=== PATIENT | male | born 1995 | race Caucasian/White ===

== ENCOUNTER 2019-01-31 13:33 | Emergency (ER) | payer BC ==
--- NOTE | 2019-01-31 13:35 | ER Report ---
History and Physical Time Seen By MD: 13:34 HPI/ROS CHIEF COMPLAINT: Leg injury while skiing HISTORY OF PRESENT ILLNESS: Patient is a 23-year-old male with no contributory or past medical history who presents with complaint of right lower extremity pain after a skiing accident. Patient states he was skiing lost his balance and he ended up striking a tree in the middle part of his right lower extremity. No other injuries were identified there is no history of head injury. No chest pain no abdominal pain. Patient is able to feel his foot and move his toes without difficulty. He reports the most pain at the middle 3rd of his tibia. REVIEW OF SYSTEMS: Respiratory: No cough, no dyspnea. Cardiovascular: No chest pain, no palpitations. Gastrointestinal: No vomiting, no abdominal pain. Musculoskeletal: No back pain. Right lower extremity pain Allergies: Coded Allergies: No Known Allergies (Verified Allergy, Unknown, 01/31/19) Home Meds Active Scripts Oxycodone Hcl/Acetaminophen (PERCOCET 5-325 MG TABLET) 1 Each Tablet, 1 EACH PO Q4H for PAIN, #30 TAB 0 Refills Prov:TANNER KRAUS MD 01/31/19 Past Medical/Surgical History Noncontributory Constitutional Vital Sign - Last 24 Hours 01/31/19 01/31/19 01/31/19 01/31/19 13:33 13:36 13:46 13:53 Temp 97.6 Pulse 87 95 78 Resp 18 B/P (MAP) 132/98 (109) 132/98 129/71 (90) Pulse Ox 92 99 O2 Delivery Room Air 01/31/19 01/31/19 01/31/19 01/31/19 14:00 14:13 14:18 14:20 Pulse 79 83 B/P (MAP) 104/77 (86) 110/94 (99) Pulse Ox 98 100 01/31/19 01/31/19 01/31/19 14:40 14:45 15:00 Pulse 82 B/P (MAP) 121/75 (90) 119/83 (95) Pulse Ox 97 Physical Exam General appearance: Alert no distress. Respiratory: Chest is non tender, lungs are clear to auscultation. Cardiac: Regular rate and rhythm [ ] Right lower extremity: Patient with some bruising to the knee without obvious swelling. Patient is able to bend the knee without difficulty. Patient has abrasion to the anterior upper 3rd of the lower extremity. Pain is below the abrasion and is located in the middle 3rd of the anterior peterson. There is no obvious deformity. Patient has excellent capillary refill and has normal palpable dorsalis pedis and posterior tibialis pulses. Left Lower Extremity: No deformity patient is able to range the knee the ankle. Patient does have some bruising to the left knee with some swelling. Patient is able to raise the thigh and then extended the knee without pain. No pain to the proximal thigh no pain to the proximal tibia or fibula no pain distally to the ankle or foot. Medical Decision Making EKG/Imaging Imaging Patient has a closed, comminuted fracture to the middle 3rd of the right tibia that is completely nondisplaced. ED Course/Re-evaluation ED Course Plan at this time will be x-ray of the knee, tib-fib, ankle on the right lower extremity. 01/31/2019 2:32:05 pm Procedure: Short leg posterior splint and sugar tong splin placement. A short leg posterior splint was applied 1st and then wrapped in Ruben wrap. This was followed by the application of a sugar tong or U-splint splint was applied. After application of the splint I returned and re-examined the patient. The splint was adequately immobilizing the joint and distal to the splint the patient's circulation and sensation was intact. 01/31/2019 2:50:12 pm patient placed in splint without difficulty however upon standing he was complaining of left knee pain. He is able to range the knee there is some soft tissue swelling in the prepatellar area as well as ecchymosis however no pain to the proximal tibia or fibula no pain along the tibia ankle foot or upper thigh. Platelets time will be x-ray of the left knee Decision to Disposition Date: Jan 31, 2019 Decision to Disposition Time: 16:00 Depart Departure Latest Vital Signs Vital Signs Date Time Temp Pulse Resp B/P (MAP) Pulse Ox O2 Delivery O2 Flow Rate FiO2 01/31/19 15:00 119/83 (95) 01/31/19 14:45 82 97 01/31/19 13:46 97.6 18 Room Air Impression: Primary Impression: Tibial fracture Additional Impressions: Patellar fracture Contusion of left knee Condition: Improved Disposition: HOME OR SELF-CARE Referrals: [facility] call saturday for appointment New Scripts Oxycodone Hcl/Acetaminophen (PERCOCET 5-325 MG TABLET) 1 Each Tablet 1 EACH PO Q4H for PAIN, #30 TAB 0 Refills Prov: TANNER KRAUS MD 01/31/19 Departure Forms: ER Transition Record, Medications Reconciliation, Off Work/School Form, School or Work Release?: Work Number of days to be released: 7 Patient Portal Information Patient Instructions: Crutch Instructions (ED), Leg Fracture (ED), Splint Care (ED) Problem Qualifiers Primary Impression: Tibial fracture Encounter type: initial encounter Tibia location: shaft Fracture type: closed Fracture morphology: comminuted Fracture alignment: nondisplaced Laterality: right Qualified Codes: S82.254A - Nondisplaced comminuted fracture of shaft of right tibia, initial encounter for closed fracture Additional Impressions: Patellar fracture Encounter type: initial encounter Fracture type: closed Fracture morphology: transverse Fracture alignment: nondisplaced Laterality: rig ht Qualified Codes: S82.034A - Nondisplaced transverse fracture of right patella, initial encounter for closed fracture Contusion of left knee Encounter type: initial encounter Qualified Codes: S80.02XA - Contusion of left knee, initial encounter TANNER KRAUS MD Jan 31, 2019 13:34
[2019-01-31] MEDS ORDERED: fentaNYL CITR 100 MCG/2 ML AMP IVP ONE (13:45)
[2019-01-31] MEDS ORDERED: KETOROLAC 15 MG/ML VIAL IVP ONE (13:45)
[2019-01-31] MEDS ORDERED: DIPHTH/TETANUS/ACEL. PERTUSSIS IM ONLY ONE (13:45)
[2019-01-31] MEDS ORDERED: OXYC-865 PO (14:30)
--- NOTE | 2019-01-31 14:33 | RADIOLOGY IMAGING REPORT ---
FACILITY: [facility] PATIENT NAME: Sathya Wilks : 1995 MR: [id number] V: [id number] EXAM DATE: ORDERING PHYSICIAN: TANNER KRAUS TECHNOLOGIST: Location: [facility] Patient: Sathya Wilks : 1995 Visit/Account:[id number] Date of Sevice: 01/31/2019 EXAMINATION: Right knee 3 views Right tibia and fibula 2 views Right ankle 3 views HISTORY: Trauma. COMPARISON: None. FINDINGS: Right knee: On the lateral knee view there is osseous irregularity along the inferior pole of the patella suspici ous for a nondisplaced patellar fracture. No other acute osseous findings about the right knee. Yi l alignment. Joint spaces are preserved. There is a right knee joint effusion extending along the sup rapatellar bursa. Right tibia and fibula: There is a nondisplaced fracture of the right tibial shaft. There is a transverse component traversin g the mid to lower right tibial shaft, with additional hairline fractures extending longitudinally al nerissa the more proximal aspect of the mid tibial shaft. No displacement or angulation. The right fibula appears intact. Soft tissue swelling along the lower leg. Right ankle: No evidence of additional fracture or dislocation about the right ankle. The medial and lateral malle praneeth are intact. Joint space is preserved along the ankle mortise. Normal mineralization. IMPRESSION: 1. Likely nondisplaced fracture through the inferior pole of patella visualized on the lateral knee f ilm. Right knee joint effusion. 2. Nondisplaced fracture of the mid right tibial shaft. 3. No acute osseous findings at the right ankle. Report Dictated By: Kee Deal MD at 01/31/2019 2:15 PM Report E-Signed By: Kee Deal MD at 01/31/2019 2:28 PM WSN:[id number]
--- NOTE | 2019-01-31 14:33 | RADIOLOGY IMAGING REPORT ---
[place]AC[place] [facility] [place]IENT NAME: Sathya Wilks : 1995 MR: [id number] V: [id number] EXAM DATE: ORDERING PHYSICIAN: TANNER KRAUS TECHNOLOGIST: Location: [facility] [place] Patient: Sathya Wilks : 1995 Visit/Account:[id number] Date of Sevice: 01/31/2019 EXAMINATION: Right knee 3 views Right tibia and fibula 2 views Right ankle 3 views HISTORY: Trauma. COMPARISON: None. FINDINGS: Right knee: On the lateral knee view there is osseous irregularity along the inferior pole of the patella suspici ous for a nondisplaced patellar fracture. No other acute osseous findings about the right knee. Yi l alignment. Joint spaces are preserved. There is a right knee joint effusion extending along the sup rapatellar bursa. Right tibia and fibula: There is a nondisplaced fracture of the right tibial shaft. There is a transverse component traversin g the mid to lower right tibial shaft, with additional hairline fractures extending longitudinally al nerissa the more proximal aspect of the mid tibial shaft. No displacement or angulation. The right fibula appears intact. Soft tissue swelling along the lower leg. Right ankle: No evidence of additional fracture or dislocation about the right ankle. The medial and lateral malle praneeth are intact. Joint space is preserved along the ankle mortise. Normal mineralization. IMPRESSION: 1. Likely nondisplaced fracture through the inferior pole of patella visualized on the lateral knee f ilm. Right knee joint effusion. 2. Nondisplaced fracture of the mid right tibial shaft. 3. No acute osseous findings at the right ankle. Report Dictated By: Kee Deal MD at 01/31/2019 2:15 PM Report E-Signed By: Kee Deal MD at 01/31/2019 2:28 PM WSN:[id number]
--- NOTE | 2019-01-31 14:34 | RADIOLOGY IMAGING REPORT ---
FACILITY: [facility] PATIENT NAME: Sathya Wilks : 1995 MR: [id number] V: [id number] EXAM DATE: ORDERING PHYSICIAN: TANNER KRAUS TECHNOLOGIST: Location: [facility] [place] Patient: Sathya Wilks : 1995 Visit/Account:[id number] Date of Sevice: 01/31/2019 EXAMINATION: Right knee 3 views Right tibia and fibula 2 views Right ankle 3 views HISTORY: Trauma. COMPARISON: None. FINDINGS: Right knee: On the lateral knee view there is osseous irregularity along the inferior pole of the patella suspici ous for a nondisplaced patellar fracture. No other acute osseous findings about the right knee. Yi l alignment. Joint spaces are preserved. There is a right knee joint effusion extending along the sup rapatellar bursa. Right tibia and fibula: There is a nondisplaced fracture of the right tibial shaft. There is a transverse component traversin g the mid to lower right tibial shaft, with additional hairline fractures extending longitudinally al nerissa the more proximal aspect of the mid tibial shaft. No displacement or angulation. The right fibula appears intact. Soft tissue swelling along the lower leg. Right ankle: No evidence of additional fracture or dislocation about the right ankle. The medial and lateral malle praneeth are intact. Joint space is preserved along the ankle mortise. Normal mineralization. IMPRESSION: 1. Likely nondisplaced fracture through the inferior pole of patella visualized on the lateral knee f ilm. Right knee joint effusion. 2. Nondisplaced fracture of the mid right tibial shaft. 3. No acute osseous findings at the right ankle. Report Dictated By: Kee Deal MD at 01/31/2019 2:15 PM Report E-Signed By: Kee Deal MD at 01/31/2019 2:28 PM WSN:[id number]
[2019-01-31] MEDS ORDERED: ONDANSETRON 4 MG/2 ML VIAL IVP ONE (14:50)
[2019-01-31] MEDS ORDERED: NS(*) 0.9% 1000 ML BAG 1,000 ML IV ONE (14:50)
[2019-01-31 15:00] VITALS: BP 119/83
--- NOTE | 2019-01-31 15:10 | RADIOLOGY IMAGING REPORT ---
FACILITY: [facility] [place] PATIENT NAME: Sathya Wilks : 1995 MR: [id number] V: [id number] EXAM DATE: ORDERING PHYSICIAN: TANNER KRAUS TECHNOLOGIST: Location: Patient: Sathya Wilks : 1995 Visit/Account:[id number] Date of Sevice: 01/31/2019 KNEE 3 VIEW LEFT Indication: pain Comparison: None. Findings: Distal femur, proximal tibia and fibula, the patella demonstrate normal mineralization and alignment. Soft tissues are unremarkable. IMPRESSION: Normal right knee radiograph. Report Dictated By: Jose Delvalle at 01/31/2019 3:06 PM Report E-Signed By: Jose Delvalle at 01/31/2019 3:07 PM WSN:[id number]
== END 2019-01-31 15:37 | disposition home or self-care (01) ==
LOC: ER 13:37
DX: S82.254A Nondisplaced comminuted fracture of shaft of right tibia, initial encounter for closed fracture (principal); S82.034A Nondisplaced transverse fracture of right patella, initial encounter for closed fracture; S80.02XA Contusion of left knee, initial encounter; V00.322A Snow-skier colliding with stationary object, initial encounter; Y93.23 Activity, snow (alpine) (downhill) skiing, snowboarding, sledding, tobogganing and snow tubing
CPT/HCPCS: 29515; 73562; 73590; 73610; 90471; 90715; 96361; 96374; 96375; 99284; J1885; J2405; J3010; J7030

== ENCOUNTER 2019-02-02 16:33 | Emergency (ER) | payer BC ==
[2019-02-02 17:05] LABS: PLATELET COUNT, AUTOMATED 153 K/uL (150-450)
--- NOTE | 2019-02-02 17:38 | ER Report ---
History and Physical Time Seen By MD: 16:30 Hx. of Stated Complaint: EMS FOUND HIM SUPINE ON THE FLOOR AT HIS HOUSE. NOT SURE WHERE HE IS OR HIS BIRTHDAY. WAS SEEN ON SATURDAY FOR A BROKEN LEG. PRESCRIBED OXYCODONE 30 TABLETS. EMS FOUND 21 TABLETS AT THE HOUSEHOLD (BABATUNDE GARCIA DO) HPI/ROS CHIEF COMPLAINT: confusion/fever HISTORY OF PRESENT ILLNESS: Pt was seen in ED on Saturday after a skiing acc ident at [facility]. Pt has a non displaced tibia fracture. PT was splinted and sent home for out patient follow up. Pts father was unable to get in touch with his son so sent a well check by police. Pt was found on the ground, lying in urine saturated clothes and confused. Pt does not know how long he has been down on the ground or what happened. PT is smiling but confused. Pt does not know his date or todays date. Pt states he is currently in [place]. PT believes the presidnent is Jose LeviBowen Emiliano. Pt denies headache. Pt denies chest or abd pain. Pt did remember he broke his leg in skiing accident. PT found to have a fever on ED arrival. Leg is still in splint. EMS found pts percocet and states the pills and bottle were scattered on the floor. Found 21 out of 30 of the pills but states "there could have been a few we missed" REVIEW OF SYSTEMS: Constitutional: + fever, no chills. Eyes: No discharge. ENT: No sore throat. Cardiovascular: No chest pain, no palpitations. Respiratory: No cough, no shortness of breath. Gastrointestinal: No abdominal pain, no vomiting. Genitourinary: No hematuria. Musculoskeletal: No back pain. + leg in splint Skin: No rashes. Neurological: No headache, confusion (BABATUNDE GARCIA DO) Allergies: Coded Allergies: No Known Allergies (Verified Allergy, Unknown, 01/31/19) Home Meds Active Scripts Oxycodone Hcl/Acetaminophen (PERCOCET 5-325 MG TABLET) 1 Each Tablet, 1 EACH PO Q4H for PAIN, #30 TAB 0 Refills Prov:TANNER KRAUS MD 01/31/19 Past Medical/Surgical History Unclear secondary to pts confusion. (BABATUNDE GARCIA DO) Reviewed Nurses Notes: Yes Old Medical Records Reviewed: Yes (LAURORA,BABATUNDE V DO) Hx Substance Use Disorder: No Hx Alcohol Use: No (LAURORA,BABATUNDE V DO) Constitutional Vital Sign - Last 24 Hours 02/02/19 02/02/19 02/02/19 02/02/19 16:33 16:37 16:37 16:45 Temp 100.6 Pulse 110 108 Resp 18 B/P (MAP) 137/84 (101) 137/84 117/90 (99) Pulse Ox 92 O2 Delivery Room Air 02/02/19 02/02/19 02/02/19 02/02/19 16:53 17:00 17:03 17:13 Pulse 98 82 Resp 29 B/P (MAP) 117/97 (104) Pulse Ox 95 O2 Flow Rate 2.0 02/02/19 02/02/19 02/02/19 02/02/19 17:33 17:53 18:00 18:13 Pulse 83 97 96 Resp 33 26 24 B/P (MAP) 114/76 (89) Pulse Ox 90 92 96 02/02/19 02/02/19 02/02/19 02/02/19 18:15 18:30 18:35 18:45 Pulse 92 Resp 18 B/P (MAP) 104/70 (81) 114/69 (84) 122/75 (91) 02/02/19 02/02/19 02/02/19 02/02/19 18:50 19:00 19:05 19:15 Pulse 89 72 Resp 30 33 B/P (MAP) 123/77 (92) 117/68 (84) Pulse Ox 89 86 02/02/19 02/02/19 02/02/19 02/02/19 19:20 19:30 19:35 19:45 Pulse 86 85 Resp 24 15 B/P (MAP) 117/70 (86) 112/71 (85) Pulse Ox 83 94 02/02/19 02/02/19 02/02/19 02/02/19 19:50 20:00 20:05 20:15 Pulse 83 88 Resp 20 28 B/P (MAP) 107/64 (78) 117/66 (83) Pulse Ox 96 95 02/02/19 02/02/19 02/02/19 02/02/19 20:20 20:30 20:30 20:45 Pulse 93 84 86 Resp 25 28 17 B/P (MAP) 112/73 (86) 112/73 (86) 128/70 (89) Pulse Ox 96 94 90 02/02/19 02/02/19 02/02/19 02/02/19 21:00 21:15 22:10 22:15 Temp 99.8 Pulse 88 95 105 100 Resp 36 16 25 B/P (MAP) 117/72 (87) ???/??? (1665) Pulse Ox 82 92 94 02/02/19 02/02/19 02/02/19 02/02/19 22:20 22:25 22:30 22:35 Pulse 101 94 92 86 Resp 27 23 26 22 B/P (MAP) ???/??? (1665) Pulse Ox 94 94 95 95 02/02/19 02/02/19 02/02/19 02/02/19 22:38 22:40 22:45 22:50 Pulse 88 82 85 Resp 23 24 27 B/P (MAP) 118/68 (85) Pulse Ox 94 94 95 02/02/19 02/02/19 02/02/19 02/02/19 22:55 23:00 23:05 23:10 Pulse 81 77 82 82 Resp 23 24 25 23 B/P (MAP) 106/59 (75) Pulse Ox 94 94 94 94 02/02/19 02/02/19 02/02/19 02/02/19 23:15 23:20 23:25 23:30 Pulse 82 80 82 82 Resp 25 24 27 26 B/P (MAP) 113/62 (79) Pulse Ox 93 95 94 94 02/02/19 02/02/19 02/02/19 02/02/19 23:35 23:40 23:45 23:50 Pulse 79 82 82 82 Resp 18 25 27 Pulse Ox 96 96 96 96 02/02/19 02/03/19 02/03/19 02/03/19 23:55 00:00 00:05 00:10 Pulse 80 81 83 87 Resp 26 25 27 26 B/P (MAP) 107/59 (75) Pulse Ox 96 92 96 98 02/03/19 02/03/19 02/03/19 02/03/19 00:15 00:20 00:30 00:35 Pulse 82 83 92 Resp 24 14 B/P (MAP) 111/61 (78) Pulse Ox 97 83 02/03/19 02/03/19 02/03/19 02/03/19 00:45 00:50 00:56 01:00 Pulse 84 86 87 84 Resp 25 23 B/P (MAP) 110/62 (78) Pulse Ox 94 94 02/03/19 02/03/19 02/03/19 01:05 01:10 01:15 Pulse 86 88 81 Resp 28 27 27 Pulse Ox 94 94 93 Intake and Output 02/02/19 02/02/19 02/03/19 14:59 22:59 06:59 Intake Total 3100 ml Output Total 100 ml 150 ml Balance 3000 ml -150 ml (NELSY PENNINGTON MD) Physical Exam General Appearance: The patient is alert and orientated to person, but is not orientated to time or date. has no immediate need for airway protection and no signs of toxicity. Eyes: Pupils equal and round no pallor or injection, EOMI ENT: no pharyngeal erythema or exudates, Mucous membranes are moist, TM are nl b/l Respiratory: There are no retractions, lungs are clear to auscultation. Cardiovascular: Regular rate and rhythm. pulses are equal and symmetrical Gastrointestinal: Abdomen is soft and non tender, no masses, bowel sounds normal, no guarding, no rigidity or rebound Neurological: Cranial nerves II-XII grossly intact, no sensory or motor loss Skin: Warm and dry, no rashes, + abrasions noted on b/l knees/shins Musculoskeletal: Neck is supple non tender, no vertebral tenderness, r leg in splint Upper Extremities are nontender, nonswollen and have full range of motion. Left lower extremity non tender, nonswollen and full range of motion. R lower extremity was in splint, splint was removed and some bruising/abraisions but no erythema or significant swelling. DIFFERENTIAL DIAGNOSIS: After history and physical exam differential diagnosis was considered for pneumonia, uti, meningitis, substance abuse, fat embolus, septic joint, cellulitis, necrotizing faciatis (RADHA,BABATUNDE V ) Medical Decision Making Data Points Result Diagram: 02/02/19 1655 02/02/19 1655 Laboratory Hematology Test 02/02/19 16:55 02/02/19 17:09 02/02/19 17:57 02/02/19 18:41 Red Blood Count 5.24 M/uL (4.00-5.60) Mean Corpuscular Volume 92.2 fL (80.0-96.0) Mean Corpuscular Hemoglobin 31.9 pg (26.0-33.0) Mean Corpuscular Hemoglobin Concent 34.6 g/dL (32.0-36.0) Red Cell Distribution Width 13.1 % (11.5-14.5) Mean Platelet Volume 7.7 fL (7.2-11.1) Neutrophils (%) (Auto) 90.6 % (39.4-72.5) Lymphocytes (%) (Auto) 3.0 % (17.6-49.6) Monocytes (%) (Auto) 6.0 % (4.1-12.4) Eosinophils (%) (Auto) 0.2 % (0.4-6.7) Basophils (%) (Auto) 0.2 % (0.3-1.4) Nucleated RBC Relative Count (auto) 0.0 /100WBC Neutrophils # (Auto) 10.6 K/uL (2.0-7.4) Lymphocytes # (Auto) 0.4 K/uL (1.3-3.6) Monocytes # (Auto) 0.7 K/uL (0.3-1.0) Eosinophils # (Auto) 0.0 K/uL (0.0-0.5) Basophils # (Auto) 0.0 K/uL (0.0-0.1) Nucleated RBC Absolute Count (auto) 0.00 K/uL Sodium Level 141 mmol/L (137-145) Potassium Level 3.4 mmol/L (3.5-5.0) Chloride Level 107 mmol/L (98-107) Carbon Dioxide Level 21 mmol/L (22-30) Blood Urea Nitrogen 16 mg/dl (9-21) Creatinine 0.80 mg/dl (0.66-1.25) Glomerular Filtration Rate Calc > 60.0 Random Glucose 145 mg/dl (75-110) Lactate 1.8 mmol/L (0.7-2.1) Calcium Level 9.6 mg/dl (8.4-10.2) Magnesium Level 2.0 mg/dl (1.7-2.2) Total Bilirubin 1.5 mg/dl (0.2-1.3) Aspartate Amino Transf (AST/SGOT) 30 U/L (0-35) Alanine Aminotransferase (ALT/SGPT) 21 U/L (0-56) Alkaline Phosphatase 61 U/L (0-126) Total Creatine Kinase 695 U/L (55-170) Total Protein 7.5 g/dl (6.3-8.2) Albumin 4.5 g/dl (3.5-5.0) Thyroid Stimulating Hormone (TSH) 1.14 uIU/ml (0.46-4.68) Salicylates Level < 10 mg/L Salicylate Last Dose Date unknown Acetaminophen Level < 10 ug/ml Serum Alcohol < 10 mg/dl Influenza Virus Type A (PCR) Negative (NEGATIVE) Influenza Virus Type B (PCR) Negative (NEGATIVE) Urine Color Beth Urine Clarity Clear Urine pH 5.0 pH (4.8-9.5) Urine Specific [place] 1.035 Urine Protein 30 mg/dL (NEGATIVE) Urine Glucose (UA) Negative mg/dL (NEGATIVE) Urine Ketones 80 mg/dL (NEGATIVE) Urine Blood Small (NEGATIVE) Urine Nitrite Negative (NEGATIVE) Urine Bilirubin Small (NEGATIVE) Urine Urobilinogen 0.2 mg/dL (0.2-1.9) Urine Leukocyte Esterase Negative (NEGATIVE) Urine RBC 1 /HPF (0-2/HPF) Urine WBC <1 /HPF (0-5/HPF) Urine Squamous Epithelial Cells None /LPF (</=FEW) Urine Transitional Epithelial Cells Few /LPF (NONE-FEW) Urine Bacteria Negative /HPF (NONE-FEW) Urine Mucus Few /HPF (NONE-FEW) Urine Opiates Screen Positive Urine Barbiturates Screen Negative Ur Tricyclic Antidepressants Screen Negative Urine Phencyclidine Screen Negative Urine Amphetamines Screen Negative Urine Benzodiazepines Screen Negative Urine Cocaine Screen Negative Urine Cannabinoids Screen Negative CSF Appearance Clear (CLEAR) CSF Color [place] (COLORLESS) CSF WBC 7 /mm3 (0-5) CSF RBC 270 /mm3 CSF Neutrophils 64 % CSF Lymphocytes 28 % CSF Monocytes 8 % CSF Eosinophils % 0 % CSF Basophils 0 % CSF Glucose 81 mg/dl CSF Total Protein 63 mg/dl (15-50) Chemistry Test 02/02/19 16:55 02/02/19 17:09 02/02/19 17:57 02/02/19 18:41 White Blood Count 11.7 k/uL (4.5-11.0) Red Blood Count 5.24 M/uL (4.00-5.60) Hemoglobin 16.7 g/dL (14.0-18.0) Hematocrit 48.3 % (42.0-52.0) Mean Corpuscular Volume 92.2 fL (80.0-96.0) Mean Corpuscular Hemoglobin 31.9 pg (26.0-33.0) Mean Corpuscular Hemoglobin Concent 34.6 g/dL (32.0-36.0) Red Cell Distribution Width 13.1 % (11.5-14.5) Platelet Count 153 K/uL (150-450) Mean Platelet Volume 7.7 fL (7.2-11.1) Neutrophils (%) (Auto) 90.6 % (39.4-72.5) Lymphocytes (%) (Auto) 3.0 % (17.6-49.6) Monocytes (%) (Auto) 6.0 % (4.1-12.4) Eosinophils (%) (Auto) 0.2 % (0.4-6.7) Basophils (%) (Auto) 0.2 % (0.3-1.4) Nucleated RBC Relative Count (auto) 0.0 /100WBC Neutrophils # (Auto) 10.6 K/uL (2.0-7.4) Lymphocytes # (Auto) 0.4 K/uL (1.3-3.6) Monocytes # (Auto) 0.7 K/uL (0.3-1.0) Eosinophils # (Auto) 0.0 K/uL (0.0-0.5) Basophils # (Auto) 0.0 K/uL (0.0-0.1) Nucleated RBC Absolute Count (auto) 0.00 K/uL Glomerular Filtration Rate Calc > 60.0 Lactate 1.8 mmol/L (0.7-2.1) Calcium Level 9.6 mg/dl (8.4-10.2) Magnesium Level 2.0 mg/dl (1.7-2.2) Total Bilirubin 1.5 mg/dl (0.2-1.3) Aspartate Amino Transf (AST/SGOT) 30 U/L (0-35) Alanine Aminotransferase (ALT/SGPT) 21 U/L (0-56) Alkaline Phosphatase 61 U/L (0-126) Total Creatine Kinase 695 U/L (55-170) Total Protein 7.5 g/dl (6.3-8.2) Albumin 4.5 g/dl (3.5-5.0) Thyroid Stimulating Hormone (TSH) 1.14 uIU/ml (0.46-4.68) Salicylates Level < 10 mg/L Salicylate Last Dose Date unknown Acetaminophen Level < 10 ug/ml Serum Alcohol < 10 mg/dl Influenza Virus Type A (PCR) Negative (NEGATIVE) Influenza Virus Type B (PCR) Negative (NEGATIVE) Urine Color Beth Urine Clarity Clear Urine pH 5.0 pH (4.8-9.5) Urine Specific [place] 1.035 Urine Protein 30 mg/dL (NEGATIVE) Urine Glucose (UA) Negative mg/dL (NEGATIVE) Urine Ketones 80 mg/dL (NEGATIVE) Urine Blood Small (NEGATIVE) Urine Nitrite Negative (NEGATIVE) Urine Bilirubin Small (NEGATIVE) Urine Urobilinogen 0.2 mg/dL (0.2-1.9) Urine Leukocyte Esterase Negative (NEGATIVE) Urine RBC 1 /HPF (0-2/HPF) Urine WBC <1 /HPF (0-5/HPF) Urine Squamous Epithelial Cells None /LPF (</=FEW) Urine Transitional Epithelial Cells Few /LPF (NONE-FEW) Urine Bacteria Negative /HPF (NONE-FEW) Urine Mucus Few /HPF (NONE-FEW) Urine Opiates Screen Positive Urine Barbiturates Screen Negative Ur Tricyclic Antidepressants Screen Negative Urine Phencyclidine Screen Negative Urine Amphetamines Screen Negative Urine Benzodiazepines Screen Negative Urine Cocaine Screen Negative Urine Cannabinoids Screen Negative CSF Appearance Clear (CLEAR) CSF Color [place] (COLORLESS) CSF WBC 7 /mm3 (0-5) CSF RBC 270 /mm3 CSF Neutrophils 64 % CSF Lymphocytes 28 % CSF Monocytes 8 % CSF Eosinophils % 0 % CSF Basophils 0 % CSF Glucose 81 mg/dl CSF Total Protein 63 mg/dl (15-50) Toxicology Test 02/02/19 16:55 02/02/19 17:57 Salicylates Level < 10 mg/L Salicylate Last Dose Date unknown Acetaminophen Level < 10 ug/ml Serum Alcohol < 10 mg/dl Urine Opiates Screen Positive Urine Barbiturates Screen Negative Ur Tricyclic Antidepressants Screen Negative Urine Phencyclidine Screen Negative Urine Amphetamines Screen Negative Urine Benzodiazepines Screen Negative Urine Cocaine Screen Negative Urine Cannabinoids Screen Negative Urinalysis Test 02/02/19 17:57 Urine Color Beth Urine Clarity Clear Urine pH 5.0 pH (4.8-9.5) Urine Specific [place] 1.035 Urine Protein 30 mg/dL (NEGATIVE) Urine Glucose (UA) Negative mg/dL (NEGATIVE) Urine Ketones 80 mg/dL (NEGATIVE) Urine Blood Small (NEGATIVE) Urine Nitrite Negative (NEGATIVE) Urine Bilirubin Small (NEGATIVE) Urine Urobilinogen 0.2 mg/dL (0.2-1.9) Urine Leukocyte Esterase Negative (NEGATIVE) Urine RBC 1 /HPF (0-2/HPF) Urine WBC <1 /HPF (0-5/HPF) Urine Squamous Epithelial Cells None /LPF (</=FEW) Urine Transitional Epithelial Cells Few /LPF (NONE-FEW) Urine Bacteria Negative /HPF (NONE-FEW) Urine Mucus Few /HPF (NONE-FEW) (NELSY PENNINGTON MD) Microbiology Microbiology Date/Time Source Procedure Growth Status 02/02/19 16:55 Blood Blood Culture - Preliminary NO GROWTH AFTER 1 DAY, REINCUBATED Resulted 02/02/19 16:49 Blood Blood Culture - Preliminary NO GROWTH AFTER 1 DAY, REINCUBATED Resulted 02/02/19 18:41 Cerebrospinal Fluid Gram Stain - Final Resulted 02/02/19 18:41 Cerebrospinal Fluid CSF Culture - Preliminary NO GROWTH AFTER 1 DAY, REINCUBATED Resulted 02/02/19 17:57 Clean Catch Midstream Ur Urine Culture - Preliminary NO GROWTH AFTER 1 DAY, REINCUBATED Resulted (NELSY PENNINGTON MD) EKG/Imaging Imaging EXAMINATION: CT HEAD WITHOUT CONTRAST COMPARISON: None available HISTORY: Fever. Confusion. PROCEDURE: Noncontrast CT from the vertex through the skull base. One of the following dose optimization techniques was utilized in the performance of this exam: Automated exposure control; adjustment of the mA and/or kV according to the patient's size; or use of an iterative reconstruction technique. Specific details can be referenced in the facility's radiology CT exam operational policy. FINDINGS: Brain volume: Age-appropriate. Hemorrhage/extra-axial fluid: None. Mass effect/midline shift/edema: None. Ischemia: No-white differentiation is preserved. Ventricles and basal cisterns: Within normal limits. Posterior fossa: Negative. Vessels: Negative. Calvarium, skull base, and scalp: Negative. Visualized sinuses and orbits: Within normal limits. IMPRESSION: Negative noncontrast head CT. Report Dictated By: Enrique Chung MD at 02/02/2019 6:02 PM Examination: CHEST PA LAT Comparison: None. History: Fever. Findings: Questionable indistinct density in the right lower lobe. No pneumothorax, edema, or effusion. Cardiac and hilar contour size is normal. Osseous structures are intact. IMPRESSION: Questionable indistinct density in the right lower lobe. This could be a summation artifact although correlation with any clinical evidence of a right lower lobe pneumonia is recommended. Report Dictated By: Enrique Chung MD at 02/02/2019 6:05 PM EXAMINATION: CTA of the chest with IV contrast HISTORY: Confusion. Tibia fracture. TECHNIQUE: Pulmonary embolus protocol - Thin axial CT images of the chest were obtained with IV contrast during maximal pulmonary arterial opacification. Reconstruction of the source data includes multiplanar 2D coronal and sagittal reconstructed images, and 3D coronal and sagittal MIP images. Staff Occupational Therapist images have been stored on PACS. One of the following dose optimization techniques was utilized in the performance of this exam: Automated exposure control; adjustment of the mA and/or kV according to the patient's size; or use of an iterative reconstruction technique. Specific details can be referenced in the facility's radiology CT exam operational policy. Contrast: 80 mL of IV [id number]. COMPARISON: None. FINDINGS: Pulmonary arteries: The pulmonary arteries are well opacified, without suspicious filling defect. Heart, aorta, and great vessels: Normal caliber thoracic aorta, without aneurysm or dissection. Normal heart size. No pericardial effusion. Lungs and pleura: There is patchy infiltrate in the right lower lobe posteriorly suspicious for pneumonitis. Mild left basilar atelectasis. The central airways are patent. No pleural effusion or pneumothorax. Mediastinum and albert: Negative. Visualized upper abdomen: Unremarkable. Chest wall: Negative. Bones: Negative. IMPRESSION: 1. No evidence of pulmonary embolism. 2. There is patchy infiltrate in the right lower lobe posteriorly, suspicious for pneumonitis. Report Dictated By: Kee Deal MD at 02/02/2019 9:22 PM MR BRAIN/BRAIN STEM W/O CON HISTORY: Confusion. Recent leg fracture. COMPARISON: CT earlier same day at 1646 hours. TECHNIQUE: Multi-planar, multi-sequence brain MR was performed without contrast. CONTRAST: None. FINDINGS: There is motion on many of the sequences. Brain: There are numerous punctate foci of restricted diffusion scattered bilaterally throughout the supratentorial brain, including within the basal ganglia and the corpus callosum. No intracranial hemorrhage, mass, or edema. Sulci, ventricles, and cisterns: Sulci are normal. The ventricles are normal in size and configuration. The basilar cisterns are patent. Vessels: The vascular flow voids are normal. Osseous structures: Intact. Paranasal sinuses and mastoids: There is mild mucosal thickening of the ethmoid sinuses. Mastoids are clear. Orbits and soft tissues: Normal. IMPRESSION: 1. Numerous scattered tiny foci of restricted diffusion in the supratentorial brain. Given history of fracture and young age, findings are concerning for fat emboli cerebral infarctions. Central embolic vascular source is also a possibility. These findings were discussed by phone with NELSY PENNINGTON on 02/02/2019 10:34 PM. Report Dictated By: Renita Perea at 02/02/2019 10:23 PM (NELSY PENNINGTON MD) ED Course/Re-evaluation Clinical Indication for ER IV: Hydration, IV Access ED Course Will send to CT if normal will need LP. 02/02/2019 5:48:19 pm Pts grandparents who live in [place] arrived and are in room. PT gave me permission to speak to his father on the phone. Father is in [place] states he will fly here if he needs to. WIll hold off until we have results to call to the father. 02/02/2019 5:59:[address] results. Did speak with patient and Grandparents about the procedure of spinal tap and the necessity and risk/b enefit. Pt and grandparents are agreeable. Verbal consent was obtained. 02/02/2019 6:02:[address] is back and will prepare pt for spinal tap. 6:30 pm Procedure: Lumbar puncture. Indication: Confusion After verbal informed consent from [patient] explaining the risks including infection, bleeding, and neurologic damage, a lumbar puncture was performed after the patient was prepped and draped in the usual fashion. The back was anesthetized with 1% lidocaine. Attempt at L3-4 space was unsuccessful after two attempts. PT repositionsed and was reattempted at L4-5 and approximately 4 cc of fluid was obtained. The procedure was performed by myself. 02/02/2019 7:15 PT signed out to Dr. Pennington pending Spinal fluid analysis. Rocephin is hanging while awaiting results. If spinal fluid does not show meningitis then patient will require MRI to look closer at the brain. Decision to Disposition Date: Feb 03, 2019 Decision to Disposition Time: 19:30 (BABATUNDE GARCIA DO) Clinical Indication for ER IV: Hydration, IV Access ED Course I reviewed this patient with Dr. Garcia at shift change tonight and assumed care while awaiting results of lumbar puncture. The patient remains confused here in the ER, but no other focal deficits on neurological evaluation. Lumbar puncture was traumatic with increased red blood cells, but also with increased white blood cells that would be higher than expected for the red cells present, and an increased protein level, possibly representing a viral meningitis. Chest x-ray also showed possible early right lower lobe infiltrates. The patient was started on Rocephin 2grams IV to cover for meningitis after the lumbar puncture. Gram stain of the CSF reveals no white cells or organisms. Concern for possible fat embolism given the recent tibia s haft fracture. Discussed with Dr. Brown, hospitalist here at [facility], who agreed that this was a concern. CTA chest and MRI brain without contrast was obtained. CTA chest showed no emboli, but did show evidence of right lower lobe pneumonitis. ALEKSANDR showed multiple scattered infarcts, thought likely to represent fat embolism, raising the suspicion of a cardiac septal defect as well. Discussed these findings with the patient's mother, Jessica. Unknown when last known normal was. Best guess sometime Saturday morning. I discussed the case with neurology at [facility], Dr. Clancy, and then with the hospitalist, Dr. Herrera, who accepted the patient for transfer. Supportive care to continue and further evaluation for cause of the infarcts and prevention. Called and spoke with Sathya White's father, and left a message for Sathya Lopez's mother. Christopher is driving from [place] and should be at [facility] around 10am in the morning. Jessica is flying in to [place] tomorrow from business trip in [place]. Jessica Christopher Decision to Disposition Date: Feb 03, 2019 Decision to Disposition Time: 00:15 Transfer Facility Patient was transferred to [facility] via ambulance. The transfer was non-emergent, and was required because the capabilities of the receiving hospital. Consent for transfer was obtained from the patient's mother and father. See EMTALA for transfer orders. (NELSY PENNINGTON MD) Depart Departure Latest Vital Signs Vital Signs Date Time Temp Pulse Resp B/P (MAP) Pulse Ox O2 Delivery O2 Flow Rate FiO2 02/03/19 01:15 81 27 93 02/03/19 01:00 110/62 (78) 02/02/19 21:15 99.8 02/02/19 17:03 2.0 02/02/19 16:37 Room Air (NELSY PENNINGTON MD) Impression: Primary Impression: Cerebral infarction Additional Impressions: Fat embolism (traumatic), initial encounter Pneumonitis Confusion Fracture, tibia, shaft Rhabdomyolysis Condition: Condition Unchanged Disposition: XFER TO [facility] Problem Qualifiers Primary Impression: Cerebral infarction Cerebral infarction mechanism: embolism Laterality of affected vessel: unspecified Additional Impressions: Fracture, tibia, shaft Encounter type: subsequent encounter Fracture type: closed Fracture morphology: transverse Fracture alignment: nondisplaced Laterality: right Fracture healing: with routine healing Qualified Codes: S82.224D - Nondisplaced transverse fracture of shaft of right tibia, subsequent encounter for closed fracture with routine healing Rhabdomyolysis Rhabdomyolysis type: traumatic Encounter type: initial encounter Qualified Codes: T79.6XXA - Traumatic ischemia of muscle, initial encounter BABATUNDE GARCIA DO Feb 02, 2019 17:38 NELSY PENNINGTON MD Feb 02, 2019 19:27
[2019-02-02] MEDS ORDERED: NS(*) 0.9% 1000 ML BAG 1,000 ML IV ONE ×3 (18:00→21:10)
[2019-02-02] MEDS ORDERED: ACETAMINOPHEN 325 MG TAB PO ONE (18:05)
--- NOTE | 2019-02-02 18:09 | RADIOLOGY IMAGING REPORT ---
FACILITY: [facility] PATIENT NAME: Sathya Wilks : 1995 MR: [id number] V: [id number] EXAM DATE: ORDERING PHYSICIAN: BABATUNDE GARCIA TECHNOLOGIST: Location: [facility] - [place] Patient: Sathya Wilks : 1995 Visit/Account:[id number] Date of Sevice: 02/02/2019 EXAMINATION: CT HEAD WITHOUT CONTRAST COMPARISON: None available HISTORY: Fever. Confusion. PROCEDURE: Noncontrast CT from the vertex through the skull base. One of the following dose optimizat ion techniques was utilized in the performance of this exam: Automated exposure control; adjustment o f the mA and/or kV according to the patient's size; or use of an iterative reconstruction technique. Specific details can be referenced in the facility's radiology CT exam operational policy. FINDINGS: Brain volume: Age-appropriate. Hemorrhage/extra-axial fluid: None. Mass effect/midline shift/edema: None. Ischemia: No-white differentiation is preserved. Ventricles and basal cisterns: Within normal limits. Posterior fossa: Negative. Vessels: Negative. Calvarium, skull base, and scalp: Negative. Visualized sinuses and orbits: Within normal limits. IMPRESSION: Negative noncontrast head CT. Report Dictated By: Enrique Chung MD at 02/02/2019 6:02 PM Report E-Signed By: Enrique Chung MD at 02/02/2019 6:05 PM WSN:[id number]
--- NOTE | 2019-02-02 18:10 | RADIOLOGY IMAGING REPORT ---
[place]AC[place] [facility] [place]IENT NAME: Sathya Wilks : 1995 MR: [id number] V: [id number] EXAM DATE: ORDERING PHYSICIAN: BABATUNDE GARCIA TECHNOLOGIST: Location: [facility] - [place] Patient: Sathya Wilks : 1995 Visit/Account:[id number] Date of Sevice: 02/02/2019 Examination: CHEST PA LAT Comparison: None. History: Fever. Findings: Questionable indistinct density in the right lower lobe. No pneumothorax, edema, or effusio n. Cardiac and hilar contour size is normal. Osseous structures are intact. IMPRESSION: Questionable indistinct density in the right lower lobe. This could be a summation artifact although correlation with any clinical evidence of a right lower lobe pneumonia is recommended. Report Dictated By: Enrique Chung MD at 02/02/2019 6:05 PM Report E-Signed By: Enrique Chung MD at 02/02/2019 6:07 PM WSN:[id number]
[2019-02-02] MEDS ORDERED: cefTRIAXone 2 GM VIAL IVP ONE (18:45)
[2019-02-02] MEDS ORDERED: NS(*) 0.9% 100 ML BAG 100 ML in NS(*) 0.9% 100 ML BAG 100 ML IVPB ONE (19:05)
[2019-02-02] MEDS ORDERED: cefTRIAXone(*) 2 GM VIAL 2 GM in NS(*) 0.9% 100 ML MINI-BAG 100 ML IVPB ONE (19:10)
[2019-02-02] MEDS ORDERED: ONDANSETRON 4 MG/2 ML VIAL IVP ONE (20:25)
[2019-02-02] MEDS ORDERED: NS(*) 0.9% 50 ML BAG 50 ML ONE (20:39)
[2019-02-02] MEDS ORDERED: IOPAMIDOL 76% 150 ML INFUS BTL 150 ML ONE (20:39)
--- NOTE | 2019-02-02 21:38 | RADIOLOGY IMAGING REPORT ---
FACILITY: [facility] PATIENT NAME: Sathya Wilks : 1995 MR: [id number] V: [id number] EXAM DATE: ORDERING PHYSICIAN: NELSY LINDSAY TECHNOLOGIST: Location: [facility] - [place] Patient: Sathya Wilks : 1995 Visit/Account:[id number] Date of Sevice: 02/02/2019 EXAMINATION: CTA of the chest with IV contrast HISTORY: Confusion. Tibia fracture. TECHNIQUE: Pulmonary embolus protocol - Thin axial CT images of the chest were obtained with IV con trast during maximal pulmonary arterial opacification. Reconstruction of the source data includes mul tiplanar 2D coronal and sagittal reconstructed images, and 3D coronal and sagittal MIP images. Repres entative images have been stored on PACS. One of the following dose optimization techniques was utilized in the performance of this exam: Autom ated exposure control; adjustment of the mA and/or kV according to the patient's size; or use of an i terative reconstruction technique. Specific details can be referenced in the facility's radiology C T exam operational policy. Contrast: 80 mL of IV Isovue-370. COMPARISON: None. FINDINGS: Pulmonary arteries: The pulmonary arteries are well opacified, without suspicious filling defect. Heart, aorta, and great vessels: Normal caliber thoracic aorta, without aneurysm or dissection. Norm al heart size. No pericardial effusion. Lungs and pleura: There is patchy infiltrate in the right lower lobe posteriorly suspicious for pneu monitis. Mild left basilar atelectasis. The central airways are patent. No pleural effusion or pneumo thorax. Mediastinum and albert: Negative. Visualized upper abdomen: Unremarkable. Chest wall: Negative. Bones: Negative. IMPRESSION: 1. No evidence of pulmonary embolism. 2. There is patchy infiltrate in the right lower lobe posteriorly, suspicious for pneumonitis. Report Dictated By: Kee Deal MD at 02/02/2019 9:22 PM Report E-Signed By: Kee Deal MD at 02/02/2019 9:34 PM WSN:[id number]
[2019-02-02] MEDS ORDERED: LORazepam 2 MG/ML VIAL IVP ONE (21:40)
--- NOTE | 2019-02-02 22:41 | RADIOLOGY IMAGING REPORT ---
FACILITY: [facility] - [place] PATIENT NAME: Sathya Wilks : 1995 MR: [id number] V: [id number] EXAM DATE: ORDERING PHYSICIAN: NELSY LINDSAY TECHNOLOGIST: Location: [facility] - [place] Patient: Sathya Wilks : 1995 Visit/Account:[id number] Date of Sevice: 02/02/2019 MR BRAIN/BRAIN STEM W/O CON HISTORY: Confusion. Recent leg fracture. COMPARISON: CT earlier same day at 1646 hours. TECHNIQUE: Multi-planar, multi-sequence brain MR was performed without contrast. CONTRAST: None. FINDINGS: There is motion on many of the sequences. Brain: There are numerous punctate foci of restricted diffusion scattered bilaterally throughout the supratentorial brain, including within the basal ganglia and the corpus callosum. No intracranial hem orrhage, mass, or edema. Sulci, ventricles, and cisterns: Sulci are normal. The ventricles are normal in size and configuratio n. The basilar cisterns are patent. Vessels: The vascular flow voids are normal. Osseous structures: Intact. Paranasal sinuses and mastoids: There is mild mucosal thickening of the ethmoid sinuses. Mastoids are clear. Orbits and soft tissues: Normal. IMPRESSION: 1. Numerous scattered tiny foci of restricted diffusion in the supratentorial brain. Given history of fracture and young age, findings are concerning for fat emboli cerebral infarctions. Central embolic vascular source is also a possibility. These findings were discussed by phone with NELSY LINDSAY on 02/02/2019 10:34 PM. Report Dictated By: Renita Perea at 02/02/2019 10:23 PM Report E-Signed By: Renita Perea at 02/02/2019 10:37 PM WSN:[id number]
[2019-02-03 01:00] VITALS: BP 110/62
== END 2019-02-03 01:22 | disposition short-term general hospital (02) ==
LOC: ER 16:54
DX: I63.9 Cerebral infarction, unspecified (principal); S82.224D Nondisplaced transverse fracture of shaft of right tibia, subsequent encounter for closed fracture with routine healing; T79.6XXA Traumatic ischemia of muscle, initial encounter
CPT/HCPCS: 62270; 70450; 70551; 71046; 71275; 80305; 80320; 80329; 81001; 82550; 82945; 83605; 83735; 84157; 84443; 85025; 87040; 87070; 87088; 87205; 87502; 89050; 96361; 96374; 96375; 99285; C1758; J0696; J2060; J2405; J7030; J7050; Q9967; 82040; 82247; 82310; 82374; 82435; 82565; 82947; 84075; 84132; 84155; 84295; 84450; 84460; 84520

== ENCOUNTER → 2019-02-02 | Outpatient (CLI) | payer BC ==
[~2019-02-02] MED LIST: OXYC-865 PO
== END ==
LOC: AMB 16:08
PROVIDERS: ATTEND Nurse Practitioner
DX: R40.4 Transient alteration of awareness (principal); R47.81 Slurred speech; R41.0 Disorientation, unspecified
CPT/HCPCS: A0425; A0427

== ENCOUNTER → 2019-02-03 | Outpatient (CLI) | payer BC | LOC: AMB 00:59 | PROVIDERS: ATTEND Nurse Practitioner | DX: I63.9 Cerebral infarction, unspecified (principal) | CPT/HCPCS: A0425; A0426 ==

== ENCOUNTER 2019-03-20 14:30 | Outpatient (RCR) | payer BC ==
--- NOTE | 2019-02-18 17:34 | SPEECH INITIAL EVALUATION ---
COGNITIVE LINGUISTIC EVALUATION REPORT Patient Name: Sathya Wilks Date of Evaluation: 02/18/2019 Patient : [birth year], 23yo Ordering Provider: Audie Geller MD Clinician: Tatiana Dc M.S., [facility]-SUBSCRIPTION CREW LEADER Treatment Dx: mild cognitive linguistic deficit BACKGROUND The pt is a 23-year-old male presenting to outpatient SUBSCRIPTION CREW LEADER services at [facility] following recent discharge from the acute rehabilitation facility at [facility]. The patient was seen in the [facility] emergency department on 01/31/19 after a skiing accident at the [facility] ski [place]. He obtained a nondisplaced tibia fracture, was splinted, and then sent home for follow-up as an outpatient. The pts father was unable to get in touch with the pt, and subsequently sent a welfare check. The pt was found by the police department, confused and on the ground. It is unknown how long he was down for. The pt was brought back to [facility] on 02/02/19. 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 It was suspected that cerebral infarction occurred secondary to fat emboli associated with the pts tibial fracture. The pt was subsequently transferred to [facility], and then transferred to the [facility] rehab unit on 02/08/19. 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 He was previously independent with all functions. His mother (Kassi) is now staying with the pt as he continues to recover. The pt perceives that cognitive linguistic deficits have largely resolved, but reports experiencing increased difficulty focusing on information when attending lectures on campus. He returned to classes 2 days prior to his initial SUBSCRIPTION CREW LEADER visit. LANGUAGE/COGNITION The pt was seen in the speech therapy office for completion of a cognitive linguistic assessment. He provided a cohesive description of medical etiology/pathology, was well-oriented to all concepts, exhibited appropriate pragmatic skills, and put forth good effort throughout assessment tasks. Informally, expressive language skills appear largely intact. The Functional Assessment of Verbal Reasoning and Executive Strategies (FAVRES) was initiated. The FAVRES is a standardized test of subtle cognitive communication difficulties designed specifically for those with acquired brain injuries. It targets aspects of complex comprehension, complex expression, verbal reasoning, and executive functioning. It consists of four reasoning tasks: (1) Planning an Event, (2) Scheduling, (3) Making a Decision, and (4) Building a Case. The following results were obtained from subtests 1, 2, and 4, with insufficient time to complete the assessment to its entirety: Task 1 Task 2 Task 3 Task 4 Raw % SS Raw % SS Raw % SS Raw % SS Accuracy 5 100 108 2* <1 24 4 15 74 Rationale 5 100 106 0* 6 58 4 29 89 Time 3 100 120 6 130 6 95 117 Remainder of assessment tasks will be administered during the pts next treatment appointment to assist in further establishment of goals for functional plan of care. Current results illustrate impairments in attention, executive functioning, and problem solving skills including difficulty attending to multiple pieces of information, difficulty integrating information to solve complex problems, difficulty organizing information based on chronology, and difficulty comprehending complex instructions. Relative areas of strength were noted in mental flexibility and verbal reasoning skills. The pt fluently and appropriately justified the majority of his responses provided with verbal prompts. Cognitive-linguistic impairments may functionally limit safe, efficient, and independent participation in the home, community, and workplace. The pt may experience specific difficulties completing the following activities: Execution of complex instructions for safety and medical plan of care Independent medication management Independent financial sales professional Organizing daily schedule for attending appointments, classes, interviews, etc Analyzing complex information for participation in academic and vocational activities Attending to complex information in the presence of competing environmental stimuli Solving complex problems at school and in the workplace The patient presents with cognitive linguistic deficits that reduce safe and independent reintegration into community, academic, and workplace responsibilities. Speech-language pathology services are warranted to provide instruction in external compensatory strategies and internal cognitive exercises to support identified areas of impairment and to help the pt reach his goals of graduating from and obtaining post-graduation employment. RECOMMENDATIONS 1. ST 2x/wk for 6 wks 2. 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 High PLOF. Good insight. Strong family support. PLAN OF CARE Short Term Goals 1. The patient will improve executive function skills via independent utilization internal and external organization systems to support completion of planning/scheduling activities, 90% accuracy. 2. The patient will improve functional problem solving via independent demonstration of reasoning/information analysis skills during participation in academic related tasks, 90% accuracy LTG 1. The patient will complete academic coursework at the [employer] and graduate from the University without delay, including independent incorporation of executive function and problem solving strategies. Thank you for this referral. Please call [phone] Tatiana Dc M.S., CCC-SUBSCRIPTION CREW LEADER Physician Signature [*] LIVD
--- NOTE | 2019-02-19 12:22 | PT INITIAL EVALUATION ---
MEDICAL DIAGNOSIS: Closed Fracture of Right Tibia, Fulminant Fat Embolism Syndrome TREATMENT DIAGNOSIS: Closed Fracture of Right Tibia, Fulminant Fat Embolism Syndrome DATE OF ONSET: 01/31/19 SUBJECTIVE: Sathya is a 23 year old male presenting to physical therapy following R tibial fracture as well as patellar microfracture secondary to accident while skiing on January 31, 2019. Pt reports that he fell skiing and hit a tree banging up both legs with bruising on the L peterson and hairline fracture as well as closed fracture on the R tibia with microfractures on the inferior pole of the R patella. 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 Following pt had surgical closed reduction and intramedullary nail stabilization of the tibia fracture. Pt has little memory acutely following the event, but has been doing well since. At this time pt is WBAT on the R LE with minimal effects from the stroke and seeing speech therapy for lingering concentration symptoms. Pt reports pain is well controlled with Tramadol and Tylenol and that he has returned back to school. Pt is a student at the [employer] with a major in Finance and minor in Economics and plans to graduate this Spring. REHAB PROBLEM LIST: Increased Pain Decreased ROM Decreased Strength Impaired Transfers Decreased Endurance Decreased Balance Decreased Function Decreased ADL's Decreased Mobility Decreased Gait PREVIOUS MEDICAL HISTORY: See EMR OCCUPATION: Student OBJECTIVE: Pt presents with air cast boot on the R foot and below knee while seated in a WC. Incisions are present on the medial aspect of the R tibia on both distal and proximal ends with additional incision along the patellar tendon. Incisions are well healed without signs of redness or infections. ROM: Knee ROM (L,R): flexion: 145, 103, ext: 2, -3. Ankle ROM (L,R): PF: 60, 47, DF:12, 8, Ever: 10, -2, Inver: 46, 36. UE ROM: full and equal no pain B. Strength: LE MMT: (L,R): Hip: flexion: 4+/5, 3+/5, ext: 5/5, 3/5, abd/add: 5/5 B. Knee: flexion: 4-/5 with anterior L tibial pain, R not tested, ext: 5/5, R not tested at this time. Ankle: PF: 4/5, 2+/5, DF: 5/5, 2+/5, Ever: 4-/5 with anterior tibial pain on L, 3+/5, Inver: 4/5, 3+/5. Palpation: Pt is ttp along the R peterson distal>proximal as well as the inferior pole of the patella. Sensation: Sensation equal B on UE and LE. Special Tests: [id number] test (-), CJ: (-) Gait: Pt uses FWW at home for ambulation most of the time with use of crutches for stairs. Pt uses WC for ambulation around campus with Aircast on. ASSESSMENT: Sathya presents with signs and symptoms consistent with R tibial and patellar fracture. Physical therapy is indicated to address the above listed deficits to improve pt function with ADL's and recreational activities. Short Term Goals In 3 weeks pt will be able to ambulate 1 lap on the track without use of AD for improved function with ADL's. In 3 weeks pt will improve R knee and ankle ROM to equal to that of the L for improved function with ADL's. In 6 weeks pt will be able to stand 30 seconds on the R foot SLS for improved stability with ADL's. In 6 weeks pt will improve B LE strength to 4+/5 without pain for improved function with ADL's. Patient's Goals Return to PLOF in ADL's and recreational activities. PLAN: Patient to be seen for Manual Therapy/STM/MET Strengthening/condition Ice/Heat Range of Motion Ultrasound Stretching Iontophoresis Neuromuscular Re-ed Closed Chain Program Electrical Stim Posture/Body mechanics Gait Trg/Balance Trg Biofeedback Home Exercise Program Mech./Manual Traction Therapeutic Activities 3x/Week for 6 Weeks If you have any questions, comments, or concerns about this report or plan, please contact me at . Thank you, Tiff Acharya, PT, DPT, CLT Referring Provider Signature: Date: MTDD
--- NOTE | 2019-03-18 16:42 | SLP DISCHARGE NOTE ---
COGNITIVE LINGUISTIC TREATMENT DISCHARGE SUMMARY Patient Name: Sathya Wilks Last Date of Treatment: 03/04/2019 Date of : [birth year], 23yo Clinician: Tatiana Dc MS, CCC-SOCIAL MEDIA CAMPAIGN MANAGER Treatment Diagnosis: mild cognitive linguistic deficit. The pt is a 23-year-old male who initially presented to outpatient SOCIAL MEDIA CAMPAIGN MANAGER services at [facility] following discharge from the acute rehabilitation facility at [facility]. The patient obtained multiple, acute embolic strokes secondary to fat emboli associated with a tibial fracture following an [place] the [employer] [place]. 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 He was previously independent with all functions. The pts mother (Kassi) is now staying in [place] to provide extra support as he continues to recover. Initial evaluation revealed mild, higher-level cognitive linguistic deficits in the areas of attention, executive functioning, and problem solving skills. The pt has returned to classes at , and has consistently attended 4 scheduled treatment appointments. He perceives that he has returned to baseline from a cognitive linguistic standpoint, apart from mild cognitive fatigue with prolonged periods of sustained attention to complex information. Pt's mother further endorses that he appears at, or very close to, his cognitive linguistic baseline. The pt has been working towards the following goals: 1. The patient will improve executive function skills via independent utilization internal and external organization systems to support completion of planning/scheduling activities, 90% accuracy. Pt independently utilizes energy conservation techniques and external organization systems to support completion of planning/scheduling activities at 90% accuracy. Pt continues to endorse cognitive overload with prolonged periods of sustained attention. However, he exhibits excellent self-awareness with appropriate use of planning, pacing, and task prioritization to anticipate and minimize impact of cognitive fatigue. 2.The patient will improve functional problem solving via independent demonstration of reasoning/analysis skills during participation in academic related tasks, 90% accuracy. Pt independently completes functional problem solving tasks with high accuracy (90%), appropriate response justification, thought organization, and information analysis. Pt has been encouraged to incorporate self-talk strategy and to consistently double-check information for errors to support performance accuracy. SUMMARY ST goals have been met. Pt is participating in high-level college coursework without persistent difficulty. He is on-track for graduation. Pts mother endorses return to baseline from a cognitive linguistic standpoint. Pt was encouraged to monitor potential changes in cognitive linguistic status and inform ST accordingly. ST to discontinue services at this time. Thank you for referring this patient to [facility], Speech-Language Pathology. Please call [phone] to contact the SOCIAL MEDIA CAMPAIGN MANAGER with questions or concerns. Respectfully, Tatiana Dc M.S., [facility]-SOCIAL MEDIA CAMPAIGN MANAGER Physician Signature Date [*] MTDD
--- NOTE | 2019-03-20 15:42 | PT PLAN OF CARE ---
Physician: Audie Geller MD Patient is being seen: 3x/Week Therapist: Tiff Acharya, PT, DPT, CLT Medical Diagnosis: Closed Fracture of Right Tibia, Fulminant Fat Embolism Syndrome Treatment Diagnosis: Closed Fracture of Right Tibia, Fulminant Fat Embolism Syndrome Date of Onset: 01/31/19 Date of Initial Evaluation: 02/18/19 Date patient was last seen: 03/20/19 Number of treatments: 14 Number of cancellations/No shows: 0 INTERVENTIONS: Manual Therapy/STM/MET Strengthening/condition Ice/Heat Range of Motion Ultrasound Stretching Iontophoresis Neuromuscular Re-ed Closed Chain Program Electrical Stim Posture/Body mechanics Gait Trg/Balance Trg Biofeedback Home Exercise Program Mech./Manual Traction Therapeutic Activities GOALS: In 3 weeks pt will be able to ambulate 1 lap on the track without use of AD for improved function with ADL's. In 3 weeks pt will improve R knee and ankle ROM to equal to that of the L for improved function with ADL's. MET In 6 weeks pt will be able to stand 20 seconds on the R foot SLS for improved stability with ADL's.MET In 6 weeks pt will improve B LE strength to 4+/5 without pain for improved function with ADL's. PATIENT'S GOAL: Return to PLOF in ADL's and recreational activities. Status of Patient's Goals: 2/4 MET, 2/4 In Progress Patient Compliance: Good Prognosis: Good Reasons for discharge from therapy: Sathya is to discharge from physical therapy at this time secondary to meeting 2/4 functional goals as well as pt moving back to his home state following recent college graduation. At the time of discharge pt shows fearful loading on the R LE with typical use of 2 crutches with ADL's but able to use 1 crutch with good gait mechanics. Pt remains to have pain with full WB on the R LE but is able to ambulate short distances without AD as well as balance for 20 seconds with good muscular stability. Upon discharge pt is to continue PT for strengthening, ROM and return to ADL's without limitations in his home town. Additionally pt is to continue with HEP for individual progression with strength and stability. ROM: Knee ROM (L,R): flexion: 145, 144, ext: 2, 3. Ankle ROM (L,R): PF: 60, 55, DF: 8, 5, Ever: 15, 15, Inver: 46, 46. UE ROM: full and equal no pain B. Strength: LE MMT: (L,R): Hip: flexion: 5/5, 5-/5, ext: 5-/5, 4+/5, abd/add: 5/5 B. Knee: flexion: 5/5, 5/5, ext: 5/5, 4+/5. Ankle: PF: 5/5, 3+/5, DF: 5-/5, 5/5, Ever: 5/5, 4/5, Inver: 5/5, 4+/5. If you have any questions, please feel free to contact me at [phone]. Thank you, Tiff Acharya, PT, DPT, CLT LIVD
== END 2019-03-20 18:00 | disposition home or self-care (01) ==
LOC: PT 14:30
PROVIDERS: ATTEND Physical Medicine & Rehabilitation
DX: I63.40 Cerebral infarction due to embolism of unspecified cerebral artery (principal); G93.40 Encephalopathy, unspecified; T79 Certain early complications of trauma, not elsewhere classified; S82.101D Unspecified fracture of upper end of right tibia, subsequent encounter for closed fracture with routine healing
CPT/HCPCS: 97162